=== PATIENT | male | born 1965 | race Caucasian/White ===

== ENCOUNTER 2023-07-05 16:44 | Emergency (ER) | payer OTHER ==
[2023-07-05] VITALS (13 sets, daily range): BP systolic 114–132; BP diastolic 79–85
[~2023-07-05] VITALS: Ht 177.8 cm; Wt 109.1 kg
[2023-07-05 17:35] LABS: BASO% 0.6 % (0-3); EOS% 3.6 % (0-8); HEMATOCRIT 43.6 % (39.0-50.0); HEMOGLOBIN 13.8 g/dl (14.0-18.0); IMMATURE GRANULOCYTES 0.2 % (0.0-5.0); MEAN CELL VOLUME 92.4 fL CALC (80.0-100.0); MEAN CORPUSCULAR HGB 29.2 pG CALC (26.0-32.0); MEAN CORPUSCULAR HGB CONC 31.7 g/dL CAL (32.0-36.0); NEUT# 3.13 thou/uL (1.82-7.42); NEUT% 48.6 % (42-76); RED BLOOD COUNT 4.72 mill/uL (4.70-6.10); RED CELL DISTRI WIDTH 12.9 % (11.5-15.5)
[2023-07-05 17:50] LABS: ALBUMIN 4.4 g/dL (3.2-5.0); ALKALINE PHOSPHATASE 42 u/l (38-126); BILIRUBIN, TOTAL 0.3 mg/dL (0.2-1.3); BUN 16 mg/dL (9-20); BUN/CREATININE RATIO 21 (12-20 (CALC)); CARBON DIOXIDE 32 mmol/l (22-30); CHLORIDE 99 mmol/l (95-108); CREATININE 0.8 mg/dL (0.7-1.3); ETHYL ALCOHOL 0 mg/dl (0-30); GFR FOR AFR.AMER. > 60 ML/MIN (>=60 (CALC)); GFR OTHER RACES > 60 ML/MIN (>=60 (CALC)); MAGNESIUM 2.1 mg/dL (1.6-2.3); SGOT/AST 34 u/l (17-59); TOTAL PROTEIN 7.2 g/dL (6.3-8.2)
[2023-07-05 17:59] LABS: ANION GAP 14 (6-22 (CALC)); SODIUM 140 mmol/l (137-146)
== END 2023-07-05 20:05 | disposition home or self-care (01) | DRG 101 ==
LOC: ED 16:44
PROVIDERS: Emergency Medicine
DX: G40.909 Epilepsy, unspecified, not intractable, without status epilepticus (principal)
CPT/HCPCS: J1953